=== PATIENT | female | born 1995 | race Two or more races ===

== ENCOUNTER 2023-10-30 09:00 | Outpatient (CLI) | payer BC, SELFPAY | END 2023-10-30 09:01 | disposition home or self-care (01) | LOC: NFLDREF 11-02 01:10 | PROVIDERS: Visit Provider Physician Assistant | DX: Z34.83 Encounter for supervision of other normal pregnancy, third trimester (principal) | CPT/HCPCS: 82570; 84156; 86592 ==

== ENCOUNTER 2024-01-01 10:42 | Outpatient (CLI) | payer BC, SELFPAY | END 2024-01-01 10:43 | disposition home or self-care (01) | PROVIDERS: Visit Provider Obstetrics & Gynecology | DX: Z34.93 Encounter for supervision of normal pregnancy, unspecified, third trimester (principal); Z3A.37 37 weeks gestation of pregnancy | CPT/HCPCS: 82565; 82570; 84156; 84450; 84460; 84520 ==

== ENCOUNTER 2024-01-03 13:43 | Outpatient (CLI) | payer BC, SELFPAY ==
--- NOTE | 2024-01-03 14:00 | CRLHL7_ITS ---
For Patients: As a result of the Century Cures Act, medical imaging exams and procedure reports are released immediately into your electronic medical record. You may view this report before your referring provider. If you have questions, please contact your health care provider. INDICATION: elevated BP TECHNIQUE: Real time orosco scale imaging of the fetus was performed. COMPARISON: None FINDINGS: Sonographic imaging demonstrates a single living intrauterine gestation. Fetus demonstrates a regular cardiac rate of 137 beats per minute. Fetus has a vertex position. The placenta lies posteriorly. Amniotic fluid volume appears normal and there is a single deepest pocket of 5.4 cm. The estimated weight is 3413gm which lies at the 80th %. BPD 29th percentile. HC 40th percentile. AC greater than 97th percentile. FL 25th percentile. The fetus was active and demonstrated normal breathing movements. There was normal flexion and extension of the trunk and extremities. IMPRESSION: Normal biophysical profile score 8/8. Sonographic gestational age 37 weeks 3 days and sonographic due date of 01/21/2024. Good correlation with dates. Estimated weight 80th percentile. Abdominal circumference greater than 97th percentile. Dictated by Dale Jackson MD @ 01/04/2024 8:57:20 AM (Electronically Signed)
== END 2024-01-03 13:44 | disposition home or self-care (01) ==
LOC: US 13:43
PROVIDERS: Visit Provider Obstetrics & Gynecology
DX: Z34.93 Encounter for supervision of normal pregnancy, unspecified, third trimester (principal); O16.3 Unspecified maternal hypertension, third trimester; Z3A.37 37 weeks gestation of pregnancy
CPT/HCPCS: 76816; 76819

== ENCOUNTER 2024-01-18 07:36 | Inpatient (IN) | payer BC, SELFPAY ==
[2024-01-18] VITALS (80 sets, daily range): BP systolic 93–169; BP diastolic 49–128; PULSE 85–121; RESP 15–20; TEMP 36.6–37.2; O2SAT 85–99; BMI 37.1
[2024-01-18] MEDS: LACTATED RINGERS 1000 ML 1,000 ML 125 ML IV ×2 (08:18→17:45)
[2024-01-18] MEDS: AMPICILLIN 2 GM in 0.9 % SODIUM CHLORIDE Mini-bag 100 ML IVPB (08:18)
[2024-01-18 08:25] LABS: Basophils Absolute Auto 0.03 K/uL (0.00-0.30); Basophils Percent Auto 0.3 % (0.0-3.0); Eosinophils Absolute Auto 0.09 K/uL (0.00-0.50); Hematocrit 36.3 % (33.0-51.0); Hemoglobin* 12.2 gm/dL (12.0-16.0); Immature Granulocytes Abs Auto 0.05 K/uL (0.00-0.30); Immature Granulocytes Pct Auto 0.6 %; Lymphocytes Percent Auto 12.3 % (20-44); Mean Corpuscular HGB Conc 34 gm/dL (32-36); Mean Corpuscular Hemoglobin 29 pg (26-34); Mean Corpuscular Volume 87 fL (80-100); Monocytes Percent Auto 4.9 % (0.0-11.0); Neutrophils Percent Auto 80.9 % (42.0-72.0); Platelet Count* 264 K/uL (140-440); RDW Coefficient of Variation % 13.1 % (11.5-15.5); Red Blood Count 4.17 m/uL (4.00-5.20); White Blood Count* 9.06 K/uL (4.50-11.00)
[2024-01-18 08:31] LABS: Slide Review Reflex No
[2024-01-18] MEDS: AMPICILLIN 1 GM in 0.9 % SODIUM CHLORIDE Mini-bag 100 ML IVPB ×2 (12:14→16:10)
[2024-01-18] MEDS: OXYTOCIN 30 unit/500 ML in NS 30 UNIT/500 ML BAG IVPB (12:37)
--- NOTE | 2024-01-18 16:05 | W.PM.LDBA ---
Subjective History of Present Illness Narrative: Patient is being admitted to Labor and Delivery for spontaneous labor due to regular painful contractions and cervical change. She is a 28 year old at 39.3 weeks gestation. Her full history and physical was dictated by Dr. Diaz on 01/18/24. Please see this for details. Active movement. Denies LOF, vaginal bleeding or abnormal vaginal discharge. Contractions Q3-5 minutes. Specific Issues/Plans support person = sister: Maxime. Daughter at home. Baby: Girl! Mauve H&P by Dr. Diaz on 01/01/2024 # history of preeclampsia with severe features based on blood pressure criteria, required delivery at 34 weeks See baseline pre E labs below, normal. 24 hour urine for protein not completed, ordered: 240mg 81 mg of aspirin started at 12 weeks Patient is monitoring home BP's daily. # GBS positive via UC at 10 weeks. Treated with Duricef. WILLA 07/29: Resolved Antibiotics in labor # anxiety Prescribed zoloft, did not start as symptoms improved with improved sleep Started Zoloft 25 mg September 28: Side effects of worsening sleep , headache, diarrhea, head felt on fire. Transfer OB: Recommend she discontinue the sertraline. She has lot of anxiety about sleep. Is seeing a sleep therapist and her regular therapist. Offered Lexapro 5 mg, she will consider. Currently using Unisom, offered hydroxyzine, she will consider # suboptimal heart views on anatomy ultrasound and possible circumvallate placenta Level 2 ultrasound scheduled [facility] 10/15/2023: Within normal limits, no anatomic/placental anomalies # white coat hypertension Transfer at 24 weeks from [facility] Dating: Exact LMP 04/17/23, consistent with 10 week US. Final JOSS 01/22/24. History of preeclampsia with severe features, inpatient admission at [facility], at 34 weeks. History of white coat hypertension, anxiety. Labs: - New Ob: A+, Hgb 14.5, Plt 364, RPR, hepB, HIV and GC/chalmydia all negative. Hgb A1C of 4.9. - 06/29/23 UC: +GBS UTI s/p duricef, negative WILLA of 08/03/23. - Baseline preE labs: AST 20, Cr 0.52, Plt 364. UPCR <0.17, 24 hour urine protein done but no result available, not completed - 08/31/23: TSH 1.1, Hgb 12.9 - Rubella IgG + in 2019, varicella immune - Last pap, 03/23/23: NILM US: - 06/29/23: Unremarkable 10 week US, JOSS 1 day off from LMP > final JOSS is 01/22/24 by LMP - 09/06/23 anatomy US: Aleman gestation. EFW 375, at 70%ile. No anatomic anomalies seen, but limited cardiac views. Posterior placenta, ?circumvallate where consider level 2. Cervix is 3.4cm. - 10/15/23: Normal level 2 US. Fundal placenta, no comment on circumvallate. EFW 903 at 53%ile. BPD 44%ile, HC 72%ile, AC 45%ile and FL 41%ile - 01/03/2024: Vtx, SDP 5.4cm, BPP 8/8. EFW: 3413 g, 7 lb 8 oz, 80%. BPD 29%, HC 40%, AC > 97%, FL 25%. Tdap 11/27/23 Flu: Declines Covid:Declines OB - Problem Based A/P Additional Plan (1) : Status: Acute (2) History of severe pre-eclampsia: Problem details: Required delivery at 34 weeks Status: Acute Plan - Will admit for spontaneous labor - Augment as needed - GBS+, will treat with intrapartum antibiotic - Pain management plan: Will eventually want an epidural OB Exam Physical Exam Vital signs: Temp Pulse Resp BP Pulse Ox 97.9 F 108 H 16 120/71 97 01/18/24 15:19 01/18/24 13:05 01/18/24 15:19 01/18/24 13:05 01/18/24 08:34 Narrative: Physical exam: General: No acute distress Psych: Alert and oriented x3, full affect HEENT: Normocephalic, atraumatic Lungs: Unlabored breathing Neuro: No focal deficit. Mentating appropriately Pelvic exam: 4/80/-2, soft, mid position
[2024-01-18] MEDS: fentaNYL 100 MCG/2 ML inj IVP ×2 (16:48→17:40)
[2024-01-18] MEDS: ROPIVACAINE 0.2% 100 ml 100 ML 10 MG EPIDURAL (19:17)
[2024-01-18] MEDS: LIDOCAINE 2% (PF) 5 ML VIAL EPIDURAL (19:17)
[2024-01-18] MEDS: ROPIVACAINE 0.2 % PF 10 ML INJ 20 MG EPIDURAL (19:17)
--- NOTE | 2024-01-18 19:29 | PM.ANBPRC ---
[facility] Surgical History History of wisdom tooth extraction ?K08.409 - Partial loss of teeth, unspecified cause, unspecified class (ICD-10) Social History Narrative: Occupation: Unemployed. Marital status: . Alevism/cultural needs: no. Chemical or radiation exposure: no. Pre- tobacco use: no. Pre- alcohol use: no. Current tobacco use: no. Current alcohol use: no. Recreational drug use: no. Dietary restrictions: no. Blood transfusion acceptable in an emergency: yes. PSYCHOSOCIAL HISTORY: History of depression or currently depressed: no. Current or past physical, emotional, or sexual mistreatment: no. Problems that will make it hard to make it to appointments: no. What is your current living situation?: I presently have a place to live Problems where you live: no known problems In the past 12 months, utilities in danger of being shut off: no In past 12 months, lack of transportation kept you from medical appts, meetings, work, or getting things needed for daily living: no In the past 12 mos, have been you worried that your food would run out before you had money to buy more?: never true In the past 12 mos, the food you bought just didn't last and you didn't have money to buy more?: never true Smoking Status: Never smoker How often does anyone, including family, friends and others, physically hurt you: never How often does anyone, including family, friends and others, insult or talk down to you: never How often does anyone, including family, friends and others, threaten you with harm: never How often does anyone, including family, friends and others, scream or curse at you: never Little interest or pleasure in doing things: not at all Feeling down, depressed, or hopeless: not at all Meds Home Medications and Allergies Home Medications ?Medication ?Instructions ?Recorded ?Confirmed ?Type aspirin 81 mg chewable tablet 81 mg PO QDAY 10/02/23 01/18/24 History docosahexaenoic acid 200 mg 200 mg PO DAILY 10/02/23 01/18/24 History capsule ( DHA) doxylamine succinate 25 mg tablet 25 mg PO QHS 10/02/23 01/18/24 History (Unisom (doxylamine)) Allergies Allergy/AdvReac Type Severity Reaction Status Date / Time No Known Drug Allergies Allergy Verified 01/17/24 10:50 Results Labs Labs: Laboratory Results - last 24 hr 01/18/24 08:19 WBC 9.06 RBC 4.17 Hgb 12.2 Hct 36.3 MCV 87 MCH 29 MCHC 34 RDW Coeff of Lisy 13.1 Plt Count 264 Neut % (Auto) 80.9 H Lymph % (Auto) 12.3 L Rawlins % (Auto) 4.9 Eos % (Auto) 1.0 Baso % (Auto) 0.3 Neut # (Auto) 7.30 H Lymph # (Auto) 1.10 Rawlins # (Auto) 0.40 Eos # (Auto) 0.09 Baso # (Auto) 0.03 Abs Immat Gran (auto) 0.05 Imm/Tot Granulo (auto) 0.6 Blood Type A Positive Antibody Screen NEGATIVE Vital Signs Vital Signs: Last Vital Signs Temp 98.4 F 01/18/24 17:20 Pulse 111 H 01/18/24 19:29 Resp 16 01/18/24 17:20 BP 112/60 01/18/24 19:29 Pulse Ox 99 01/18/24 19:29 Weight: 83.461 kg Height: 149.86 cm Anesthesia Procedures Epidural Insertion Patient Location: OB Start Time: 18:45 Stop Time: 19:30 Start Date: 01/18/24 Stop Date: 01/18/24 Reason for Block: procedure for pain Patient Position: sitting Performed By: Irvin Mahoney Preanesthetic Checklist: IV checked, risks and benefits discussed, surgical consent, monitors and equipment checked, pre-op evaluation, timeout performed and anesthesia consent Prep: chlorhexidine gluconate Monitoring: blood pressure monitoring, continuous pulse oximetry and heart rate Approach: midline Vertebral Space: lumbar (1-5) Needle Type: Tuohy needle Injection Technique: continuous catheter Needle gauge: 17 Needle Length (cm): 10 cm Needle Insertion Depth (cm): 7 Catheter Gauge: 19 Catheter Type: multi-orifice Catheter at skin depth (cm): 13 Test Dose Result: negative and lidocaine 1.5% with epinephrine 1 to 200,000
[2024-01-18] MEDS: ONDANSETRON 2 MG/ML inj 4 MG IV (20:08)
--- NOTE | 2024-01-18 20:28 | PM.OBPNL ---
Subjective Time Seen by Provider: 20:28 Date Seen: 01/18/24 Objective Vital Signs: Last Vital Signs Temp 98.1 F 01/18/24 19:31 Pulse 107 H 01/18/24 20:26 Resp 16 01/18/24 17:20 BP 125/69 01/18/24 20:26 Pulse Ox 98 01/18/24 20:24 Pelvic Exam Dilation (cm): 6 Effacement (%): 80 Station: 0 Comments: Patient comfortable with epidural and consented to AROM. AROM at 2019 with clear fluid. Contractions Pitocin Rate (mU/min): 0 Assessment Assessment: active labor Station: 0 Amniotic Membrane Status: AROM Status: Category ll Heart Rate Baseline: 150 Channel Supervisor Variability: Moderate (6-25) Monitor Accelerations: Present Monitor Decelerations: Late Tracing Comments: Pitocin was turned off due to a couple of late deceleration. Will restart the pitocin now as NST returned to cat I. Maternal Status: Patient had severe ranging BP as BP cuff cycled during AROM. Repeat BP was 135/79. Reviewed BP with RN Pt had BP of 160/128 @ 1919, 164/83 @ 1921, and 153/63 @ 1923. RN reports patient was severely shivering after epidural and BP at 1929 was 112/60 after shivering stopped. Discussed with patient her BP. Denies any persistent headache, vision changes, SOB, right upper quadrant/epigastric pain, or rapidly expanding edema. Will continue to monitor closely. Will repeat pre-e labs if another elevated BP and start mag sulfate for seizure ppx if appropriate.
[2024-01-18 23:02] LABS: Hematocrit 34.3 % (33.0-51.0); Hemoglobin* 11.6 gm/dL (12.0-16.0); Mean Corpuscular HGB Conc 34 gm/dL (32-36); Mean Corpuscular Hemoglobin 29 pg (26-34); Mean Corpuscular Volume 87 fL (80-100); Platelet Count* 257 K/uL (140-440); Red Blood Count 3.94 m/uL (4.00-5.20); White Blood Count* 13.97 K/uL (4.50-11.00)
[2024-01-18 23:07] LABS: Alanine Aminotransferase* 31 U/L (4-35); Aspartate Amino Transferase* 53 U/L (12-35); Blood Urea Nitrogen* 9 mg/dL (5-24); Creatinine* 0.5 mg/dL (0.5-1.5); Est. Creatinine Clearance* 218.74; Estimated Glomerular Filt Rate 130 ml/min
[2024-01-18 23:10] LABS: Slide Review Reflex No
[2024-01-19] VITALS (26 sets, daily range): BP systolic 108–159; BP diastolic 54–96; PULSE 75–122; RESP 16–20; TEMP 36.6–38.1; O2SAT 97–100
[2024-01-19] MEDS: AMPICILLIN 1 GM in 0.9 % SODIUM CHLORIDE Mini-bag 100 ML IVPB (00:04)
[2024-01-19] MEDS: OXYTOCIN 30 unit/500 ML in NS 30 UNIT/500 ML BAG 300 UNIT IVPB (02:00)
--- NOTE | 2024-01-19 02:22 | W.PM.VAGD1_ITS ---
Procedure Delivery date: 01/19/24 Procedure Done: Global Events: Gestational Hypertension Intrapartal Events: Labor Augmentation Delivery augmentation: rupture of membranes Delivery monitor: external FHT Route of delivery: Laceration description: None Anesthesia type: Epidural Disposition: floor Complications: None Narrative: The patient is a 28 year-old admitted on 01/18/24 at 39 and 4/7 weeks gestation for spontaneous labor. GBS +, treated with ampicillin. Labor Analgesia: Fentanyl and epidural Pitocin: Yes. For augmentation of labor and 3rd stage AROM: On 01/17 at 1018, with clear fluid Complete: 01/18 at 0040 Pushin/5 at 0042 heart tones during second stage were II due to intermittent variable deceleration. At 0152 a viable female delivered in vertex OP presentation over intact via spontaneous vaginal delivery. The 's body was delivered in the usual manner without difficulty. The infant was placed on maternal abdomen. The cord was clamped and cut after a 30-60 second delay. The nose and mouth were bulb suctioned. weight: pending. 8 at 1 minute and 9 at 5 minutes. Shoulder dystocia: No. Nuchal cord: No Placenta delivered spontaneously and complete at 0156 with a 3-vessel cord. Placenta examined and noted to be complete. The cervix and vagina were inspected for lacerations, and none were noted. Laceration(s): None. Complications: None Estimated blood loss: 50 cc Sponge and needles counts are correct. Mother and were stable at the time of this note. Patient ruled in for GHTN based on mild ranging BP 4hrs apart. Informed patient of her elevated BP. She's had Pre-E with severe features with her last that necessitated delivery at 34 weeks. She understands she might need antihypertensive (IV and/or PO) or magnesium sulfate for seizure ppx. P/C ratio pending. Symptoms: None Magnesium: currently not indicated IV antihypertensives: currently not indicated Pre-eclampsia labs on 01/18/24: Hgb 11.6 Plt 257 Cr 0.5 ALT 31 AST 53 Given that AST is elevated from 12/31 (33 --> 53), will do repeat labs at 0500 on 01/18 for severe features surveillance. Patient had 1 isolated maternal temperature of 100.5F that resolved without in tervention. No tachycardia or malodorous/purulent discharge. Will continue to monitor for chorioamnionitis. Infant Infant Gender: Female presentation: vertex Placental Delivery Description: Spontaneous Cord Description: 3 Vessels
[2024-01-19] MEDS: IBUPROFEN 600 MG TABLET PO ×3 (02:28→20:54)
[2024-01-19] MEDS: ACETAMINOPHEN 500 MG TABLET 1000 MG PO ×3 (02:28→16:08)
--- NOTE | 2024-01-19 03:58 | PM.EN ---
Chart Event Note Time Seen by Provider: 03:58 Date Seen: 01/19/24 Chart Event Note: Called by RN to evaluate patient due to clots expulsion during fundal massage. Patient resting comfortably without complaints. Bimanual exam revealed clots in the lower uterine segment. No active bleeding. Clots were evacuated manually. After evacuation, lower uterine segment contracted and no more bleeding was noted. Fundus firm 2 cm below umbilicus. 800 mcg of misoprostol inserted MS. QBL 462 cc Labs at 0500.
[2024-01-19 06:23] LABS: Hemoglobin* 10.5 gm/dL (12.0-16.0); Mean Corpuscular HGB Conc 34 gm/dL (32-36); Mean Corpuscular Hemoglobin 30 pg (26-34); Mean Corpuscular Volume 87 fL (80-100); Platelet Count* 230 K/uL (140-440); Red Blood Count 3.55 m/uL (4.00-5.20); White Blood Count* 17.18 K/uL (4.50-11.00)
[2024-01-19 06:40] LABS: Alanine Aminotransferase* 32 U/L (4-35); Aspartate Amino Transferase* 63 U/L (12-35); Blood Urea Nitrogen* 9 mg/dL (5-24); Creatinine* 0.5 mg/dL (0.5-1.5); Est. Creatinine Clearance* 218.74; Estimated Glomerular Filt Rate 130 ml/min
[2024-01-19 07:14] LABS: Slide Review Reflex No
[2024-01-19] MEDS: DOCUSATE SODIUM 100 MG CAPSULE PO (08:29)
[2024-01-19 18:17] LABS: Rapid Plasma Reagin (RPR) Non Reactive (Non Reactive)
[2024-01-19 18:40] LABS: Aspartate Amino Transferase* 77 U/L (12-35); Creatinine* 0.5 mg/dL (0.5-1.5); Est. Creatinine Clearance* 218.74; Estimated Glomerular Filt Rate 130 ml/min
[2024-01-19 18:41] LABS: Alanine Aminotransferase* 46 U/L (4-35); Blood Urea Nitrogen* 9 mg/dL (5-24)
[2024-01-19] MEDS: LACTATED RINGERS 1000 ML 1,000 ML 50 ML IV (19:29)
[2024-01-19] MEDS: MAGNESIUM IV 4 GM/100 ML PIGGYBACK IVPB (19:30)
[2024-01-19] MEDS: MAGNESIUM Infusion 40 GM/1,000 ML IV.SOLN IVPB (20:37)
[2024-01-20] VITALS (10 sets, daily range): BP systolic 100–135; BP diastolic 64–88; PULSE 70–96; RESP 16–24; TEMP 36.4–36.8; O2SAT 96–99
[2024-01-20] MEDS: IBUPROFEN 600 MG TABLET PO ×2 (04:51→15:02)
[2024-01-20 06:30] LABS: Hematocrit 30.7 % (33.0-51.0); Hemoglobin* 10.1 gm/dL (12.0-16.0); Mean Corpuscular HGB Conc 33 gm/dL (32-36); Mean Corpuscular Hemoglobin 30 pg (26-34); Mean Corpuscular Volume 90 fL (80-100); Platelet Count* 222 K/uL (140-440); Red Blood Count 3.41 m/uL (4.00-5.20); White Blood Count* 10.31 K/uL (4.50-11.00)
[2024-01-20 06:33] LABS: Slide Review Reflex No
[2024-01-20 06:40] LABS: Alanine Aminotransferase* 59 U/L (4-35); Aspartate Amino Transferase* 92 U/L (12-35); Blood Urea Nitrogen* 5 mg/dL (5-24); Creatinine* 0.4 mg/dL (0.5-1.5); Est. Creatinine Clearance* 273.42; Estimated Glomerular Filt Rate 137 ml/min
[2024-01-20 06:54] LABS: Magnesium* 4.7 mg/dL (1.5-2.6)
[2024-01-20] MEDS: DOCUSATE SODIUM 100 MG CAPSULE PO (09:07)
[2024-01-20] MEDS: ACETAMINOPHEN 500 MG TABLET 1000 MG PO (09:07)
--- NOTE | 2024-01-20 09:43 | PM.OBPNVD1 ---
OB - PN:Subj Subjective Time Seen by Provider: 09:43 Date Seen: 01/20/24 Narrative: Vandana is a 28-year-old seen on day 1 from [facility]. Patient presented with spontaneous onset of labor, but developed hypertensive disorder of throughout her labor course. was complicated by a history of preE with SF that necessitated delivery at 34 weeks in a prior . Initial preeclampsia labs were significant for mild transaminitis, on repeat assessment after delivery they were 2 times the upper limit of normal suggesting progression to preeclampsia with severe features. Magnesium sulfate was started, currently on going at 2 grams/hour. Labs this morning show interval rise in her transaminitis - Platelets 222, creatinine 0.4, AST 92 (from 77) and ALT 59 (from 46). Vandana is feeling well this morning aside from the magnesium. Denies headache, vision changes or right upper quadrant pain. She notes minimal abdominal or pelvic pain, mostly this just occurs when she is . She denies any nausea/vomiting with p.o. intake. Ambulates without difficulty. Voiding spontaneously, passing flatus/bowel movement of small volume. Lochia is decreasing with time, described as minimal by patient. She is bonding with her daughter Lindy and is going well. OB - PN: Obj Exam Physical Exam: Vital signs: Temp Pulse Resp BP Pulse Ox O2 Del Method 97.9 F 81 16 123/79 97 Room Air 01/20/24 00:32 01/20/24 06:56 01/20/24 06:56 01/20/24 06:56 01/20/24 06:56 01/20/24 06:56 Narrative: General: Alert and oriented, no acute distress Psych: Appropriate mood and affect Heart: Regular rate and rhythm, no rubs murmurs or gallops Lungs: Clear to posterior auscultation, no wheezes rales or crackles Abdomen: Soft, nontender nondistended. Fundus palpates at 1 below umbilicus, firm. Extremities: Trace pitting edema bilaterally, calves without erythema or tenderness OB - PN: Obj Data Labs Labs: Laboratory Results - last 24 hr 01/18/24 01/19/24 01/20/24 08:19 18:10 06:17 WBC 10.31 RBC 3.41 L Hgb 10.1 L Hct 30.7 L MCV 90 MCH 30 MCHC 33 Plt Count 222 BUN 9 5 Creatinine 0.5 0.4 L Estimated Creat Clear 218.74 273.42 Estimated GFR 130 137 Magnesium 4.7 H* AST 77 H 92 H ALT 46 H 59 H RPR Screen Non Reactive OB - PN: A/P Delivery Assessment and Plan (1) : Status: Acute (2) History of severe pre-eclampsia: Problem details: Required delivery at 34 weeks Status: Acute Plan day: 1 Plan: routine care Comments: - Continue routine care for Santashok and gumaro Israel - Magnesium sulfate is ongoing for seizure prophylaxis, due to be discontinued this evening at 24 hour calderon - Continue diligent blood pressure monitoring. Of note, patient had several elevated blood pressures overnight where I would recommend we start nifedipine XL 30 mg this evening. I am hopeful with this adjustment, we will be able to achieve better pressure control for anticipated dismissal in the coming days. Plan to start nifedipine sooner today if hypertension recurs. - Repeat HELLP labs at 1800 - Adequate urine output noted, continue to monitor I/Os - VTE ppx with SCDs
--- NOTE | 2024-01-20 13:11 | PM.ANPOST ---
Post Anesthesia Note Post Anesthesia Note Patient seen: Inpatient Respiratory Status: adequate Cardiovascular Status: adequate Mental Status: baseline Pain: adequate Temp: baseline Anesthetic awareness: N/A Complications: none Follow care: none
[2024-01-20] MEDS: MAGNESIUM Infusion 40 GM/1,000 ML IV.SOLN IVPB (16:05)
[2024-01-20] MEDS: NIFEdipine 30 MG TAB.ER.24 PO (17:01)
[2024-01-20 18:34] LABS: Hematocrit 30.1 % (33.0-51.0); Mean Corpuscular HGB Conc 33 gm/dL (32-36); Mean Corpuscular Hemoglobin 30 pg (26-34); Mean Corpuscular Volume 89 fL (80-100); Platelet Count* 256 K/uL (140-440); Red Blood Count 3.37 m/uL (4.00-5.20); White Blood Count* 10.59 K/uL (4.50-11.00)
[2024-01-20 18:39] LABS: Slide Review Reflex No
[2024-01-20 18:57] LABS: Alanine Aminotransferase* 69 U/L (4-35); Aspartate Amino Transferase* 99 U/L (12-35); Blood Urea Nitrogen* 5 mg/dL (5-24); Creatinine* 0.5 mg/dL (0.5-1.5); Est. Creatinine Clearance* 213.86; Estimated Glomerular Filt Rate 130 ml/min
[2024-01-21] VITALS (8 sets, daily range): BP systolic 123–147; BP diastolic 80–91; PULSE 87–105; RESP 16; TEMP 36.7–36.9; O2SAT 97–98
[2024-01-21] MEDS: IBUPROFEN 600 MG TABLET PO ×2 (01:32→17:05)
[2024-01-21 06:23] LABS: Basophils Absolute Auto 0.03 K/uL (0.00-0.30); Basophils Percent Auto 0.3 % (0.0-3.0); Eosinophils Absolute Auto 0.23 K/uL (0.00-0.50); Eosinophils Percent Auto 2.4 % (0.0-7.0); Hemoglobin* 9.7 gm/dL (12.0-16.0); Immature Granulocytes Abs Auto 0.07 K/uL (0.00-0.30); Immature Granulocytes Pct Auto 0.7 %; Lymphocytes Percent Auto 11.8 % (20-44); Mean Corpuscular HGB Conc 33 gm/dL (32-36); Mean Corpuscular Hemoglobin 30 pg (26-34); Mean Corpuscular Volume 90 fL (80-100); Monocytes Percent Auto 4.8 % (0.0-11.0); Platelet Count* 236 K/uL (140-440); RDW Coefficient of Variation % 13.6 % (11.5-15.5); Red Blood Count 3.24 m/uL (4.00-5.20); White Blood Count* 9.75 K/uL (4.50-11.00)
[2024-01-21 06:24] LABS: Slide Review Reflex No
[2024-01-21 06:36] LABS: Alanine Aminotransferase* 69 U/L (4-35); Aspartate Amino Transferase* 94 U/L (12-35); Creatinine* 0.5 mg/dL (0.5-1.5); Est. Creatinine Clearance* 215.17; Estimated Glomerular Filt Rate 130 ml/min
--- NOTE | 2024-01-21 07:51 | P.DS_ITS ---
DS: Providers Provider Time Seen by Provider: 07:51 Date Seen: 01/21/24 Date of admission: 01/18/24 07:36 Primary care physician: Not a Local Provider Admitting Clinician: Echo Mann MD Attending Physician on discharge: Anisha Yao MD Date of Discharge: 01/21/24 DS: Diagnosis Discharge Diagnosis (1) Severe preeclampsia: Status: Acute (2) (normal spontaneous vaginal delivery): Status: Acute Exam Narrative: Exam Narrative: General: Pleasant, woman in no acute distress. Vital signs: Included in her electronic medical record. Chest: Clear to auscultation bilaterally. Heart: Regular rate and rhythm without gallop rub or murmur. Abdomen: Soft, nontender, nondistended with normal bowel sounds throughout. Fundus is firm in the midline 1 cm below the umbilicus. Extremities: Trace bilateral lower extremity edema, no pain. Const: Vital Signs, click to edit/add: Vital Signs - 24 hr 01/20/24 08:45 01/20/24 10:43 01/20/24 12:49 Temperature 97.6 F 97.8 F 98.2 F Pulse Rate [Pulse Oximeter] 70 96 95 Respiratory Rate 16 24 20 Blood Pressure [Le ft Arm] 117/77 129/81 100/64 Pulse Oximetry 97 97 97 Oxygen Delivery Me thod Room Air Room Air Room Air 01/20/24 14:55 01/20/24 16:56 01/20/24 18:50 Temperature 97.5 F L 97.6 F Pulse Rate [Pulse Oximeter] 90 89 86 Respiratory Rate 20 20 20 Blood Pressure [Le ft Arm] 135/88 135/86 131/84 Pulse Oximetry 98 98 97 Oxygen Delivery Me thod Room Air Room Air Room Air 01/21/24 04:56 Temperature Pulse Rate [Pulse Oximeter] 105 H Respiratory Rate 16 Blood Pressure [Le ft Arm] 123/81 Pulse Oximetry 98 Oxygen Delivery Me thod Room Air OB - DS: Summary Hospital Course Hospital Course: The patient is a 28 year old G 3 P 1001 now 2 at 39 and 3/7 weeks gestation that was admitted to the Center on 01/18/24 for spontaneous onset of labor. She had an complicated vaginal delivery by preeclampsia with severe features by transaminitis diagnosed on 01/19/2024. Her magnesium was discontinued on 01/20/2024 at 8:40 p.m. She delivered a viable female infant. She is breast feeding. the patient has done well. The liver transaminases were stabilizing and decreasing as of the morning of 01/21/2024. Planning on discharging the patient home on nifedipine ER 30 mg daily as her blood pressures have all been within the normal range on this medication status post magnesium. She will be discharged when she is 24 hours post magnesium discontinuation. Peripartum Data Infant delivery method: Vaginal Laceration description: None Episiotomy description: None Gender: Female Time Spent with Patient Time attestation: Total time spent providing and/or coordinating discharge services: Discharge Plan Discharge Disposition: Home, Self-Care Date of Admission: 01/18/24 07:36 Attending Provider on Discharge: Anisha Yao Primary Care Provider: Provider,Not a Local Condition: Improved Anticipated Discharge Date/Time: 01/21/24 21:00 Discharge Medications: New nifedipine 30 mg Tablet Extended Release 24hr 30 mg PO DAILY@1700 Qty: 60 0RF ibuprofen 600 mg Tablet 600 mg PO Q6H PRNQty: 30 0RF Discontinued DHA 200 mg capsule 200 mg PO DAILY aspirin 81 mg tablet,chewable 81 mg PO QDAY Unisom (doxylamine) 25 mg tablet 25 mg PO QHS Discharge Orders: Discharge Order (Routine); Ordered 01/21/24 Ordered By: Anisha Yao Patient Education: Preeclampsia and Eclampsia After Delivery (GEN), Vaginal Delivery (DC) Additional Instructions: Discharge instructions were reviewed with the patient including signs and symptoms of infection and home going medications No lifting or exercise restrictions. Nothing vaginally for 6 weeks: no tampons or intercourse Off Work or School for a minimum of 6 weeks Symptoms to report to doctor: * Bleeding that saturates more than one pad per hour * Passing clots larger than the size of a golf ball * Pain not relieved by prescribed medication * Fever above 100.4 degrees Fahrenheit * A foul vaginal odor * Difficulty in emotions, mood, and functions * Thoughts of hurting yourself and/or * Painful, reddened area in your breast * Any drainage, redness, or tenderness in your IV/epidural site * Severe headache that doesn't improve after taking medications * Changes in vision, including temporary loss of vision, blurred vision, and/or light sensitivity * Upper abdominal pain (usually under ribs on the right side) * Decrease in urination or painful, frequent urinating * Chest pain * Shortness of breath * Tenderness or pain with redness and/swelling in the calf(s) of your leg Follow [facility] for a BP check?01/24/24. Call with BP greater than or equal to 160/110 less than 90/60 Optional 2-week visit: incision check, discuss infant feeding concer ns, review control options and screen for anxiety/depression. 6-week visit for an annual exam. consultation services are available to all mothers and babies for the first year after delivery.? To make an appointment, please call [phone]. Activity Level: Other Follow Up Appointments: [facility] [Provider Group] Provider,Not a Local [Primary Care Provider] - Forms: [employer] Info Instructions
[2024-01-21] MEDS: DOCUSATE SODIUM 100 MG CAPSULE PO (08:43)
[2024-01-21] MEDS: NIFEdipine 30 MG TAB.ER.24 PO (16:56)
== END 2024-01-21 21:50 | disposition home or self-care (01) | DRG 560 ==
LOC: OB OUT 07:37 → OB 07:37
PROVIDERS: Obstetrics & Gynecology; Admitting Provider Obstetrics & Gynecology; Visit Provider Obstetrics & Gynecology
DX: O99.824 Streptococcus B carrier state complicating childbirth (principal); O14.15 Severe pre-eclampsia, complicating the puerperium; O72.1 Other immediate postpartum hemorrhage; O76 Abnormality in fetal heart rate and rhythm complicating labor and delivery; O99.344 Other mental disorders complicating childbirth; F41.9 Anxiety disorder, unspecified; Z3A.39 39 weeks gestation of pregnancy; Z37.0 Single live birth
CPT/HCPCS: 01967; 36415; 82565; 83735; 84450; 84460; 84520; 85025; 85027; 86592; 86850; 86900; 86901; 88307; A9270; J0290; J2371; J2405; J2795; J3010; J3475; J7120